=== PATIENT | male | born 1975 | race Caucasian/White ===

== ENCOUNTER 2024-05-10 07:10 | Inpatient (IN) | payer OTHER, SELFPAY ==
[2024-05-10] VITALS (18 sets, daily range): BP systolic 125–164; BP diastolic 75–116; PULSE 61–100; RESP 16–25; TEMP 35.6–37; O2SAT 95–100; BMI 29.4
--- NOTE | ~2024-05-10 | US_ITS ---
EXAMINATION: US venous doppler ON LICENSE OF [facility] DATE: 05/13/2024 13:35 INDICATION: Arm edema TECHNIQUE: Duran scale images with and without compression and Doppler images of the left upper extrem ity veins were obtained. COMPARISON: None. FINDINGS: The left internal jugular vein, subclavian vein, axillary vein, brachial veins, basilic vein, cephali c vein, radial vein, and ulnar vein are patent. IMPRESSION: 1. Patent left upper extremity veins. No evidence of deep venous thrombosis. Reviewed, dictated and finalized at location B.
--- NOTE | ~2024-05-10 | CT_ITS ---
EXAMINATION: CT abdomen pelvis w con DATE: 05/10/2024 09:02 INDICATION: Pancreatitis. TECHNIQUE: Computed tomography (CT) of the abdomen and pelvis was performed with 100 mL Omnipaque 350 intravenous contrast. Automated exposure control and iterative reconstruction technique were employe d. The dose-length product was 601.60 mGy-cm. COMPARISON: None. FINDINGS: The visualized portions of the lung bases demonstrate mild atelectasis. No pleural effusion . The heart size is normal. No pericardial effusion. The liver is normal. There are changes of cholec ystectomy. There is fat stranding and fluid around the head of the pancreas with hypoenhancement in t he head of the pancreas, consistent with acute interstitial pancreatitis. The spleen, adrenal glands, and right kidney are normal. There is a 3 mm cyst in left kidney. There are no dilated loops of salvador l. The appendix is normal. There are no pathologically enlarged lymph nodes. There is mild thoracic s pondylosis. IMPRESSION: 1. Acute interstitial pancreatitis. Reviewed, dictated and finalized at location A.
[2024-05-10 07:49] LABS: Basophils Absolute Auto 0.1 K/mm3 (0.0-0.1); Basophils Percent Auto 0.8 % (0.2-1.2); Eosinophils Absolute Auto 0.1 K/mm3 (0-0.3); Eosinophils Percent Auto 0.5 % (0-4.4); Hemoglobin 14.7 g/dL (14.0-18.0); Immature Granulocyte Absolute 0.09 K/mm3 (0.00-0.031); Immature Granulocyte Percent A 0.5 % (0-0.5); Lymphocytes Absolute Auto 1.22 K/mm3 (0.9-3.2); Mean Corpuscular HGB Conc 34.2 g/dl (32-36); Mean Corpuscular Hemoglobin 29.2 pg (26-34); Mean Corpuscular Volume 85.5 fl (80-100); Mean Platelet Volume 9.5 fl (7.4-10.4); Monocytes Absolute Auto 1.2 K/mm3 (0.1-0.6); Monocytes Percent Auto 6.7 % (2.6-8.5); Neutrophils Absolute Auto 14.7 K/mm3 (1.3-6.7); Neutrophils Percent Auto 84.5 % (45.5-73.1); Platelet Count Result 332 k/mm3 (150-375); Red Blood Count 5.03 M/mm3 (4.6-6.20); Red Cell Distribution Width 12.2 % (11.5-14.5); White Blood Count 17.4 K/mm3 (4.5-10.0)
[2024-05-10 07:50] LABS: Add Urine Microscopic? NO; Appearance Urine Clear (Clear); Bilirubin Urine Negative (Negative); Blood Urine Negative (Negative); Color Urine Yellow (Yellow); Glucose Urine UA Negative (Negative); Ketones Urine Trace mg/dL (Negative); Leukocyte Esterase Ur Negative LEU/UL (Negative); Nitrate Urine Negative (Negative); Protein Urine Negative (Negative); Specific Grav Ur 1.017 (1.001-1.035); pH Urine 7.5 (5.0-9.0)
[2024-05-10 08:00] LABS: Alanine Aminotransferase 41 U/L (6-50); Albumin Level 4.6 g/dL (3.5-5.1); Alkaline Phosphatase 80 U/L (38-126); Anion Gap 10 mmol/L (4-12); Aspartate Amino Transferase 34 U/L (17-59); Bilirubin,Total 0.3 mg/dL (0.2-1.3); Blood Urea Nitrogen 13 mg/dL (9-20); Calcium 9.1 mg/dL (8.4-10.2); Carbon Dioxide 28 mmol/L (22-30); Chloride 100 mmol/L (98-107); Estimated CRCL calculation 75 ml/min; Estimated Glomerular Filt Rate > 60; Glucose 130 mg/dL (65-110); Potassium 4.4 mmol/L (3.4-5.0); Sodium 138 mmol/L (137-145)
[2024-05-10 08:13] LABS: Lipase 2434 U/L (23-300)
[2024-05-10] MEDS: ONDANSETRON INJ 4 MG/2 ML VIAL IV PUSH ×4 (08:47→20:27)
[2024-05-10] MEDS: SODIUM CHLORIDE 0.9% IV 1,000 ML 999 ML IV CONT ×2 (08:47→09:06)
[2024-05-10] MEDS: HYDROmorphone HCL INJ (*CRX) 1 MG/ML SYR IV PUSH ×3 (08:48→12:34)
--- NOTE | 2024-05-10 08:51 | ED.ABDPAIN ---
HPI - Abdominal Pain General Chief Complaint: Abdominal Pain Stated Complaint: abd pain Time Seen by Provider: 05/10/24 08:13 History of Present Illness HPI narrative: Patient is a 49-year-old male presenting with abdominal pain and vomiting. States that it feels like an episode of pancreatitis that he had about 10 years ago. States that it just started this morning. States in the middle of his stomach and a goes straight through to his back. Has been vomiting all morning as well. Denies fevers, chest pain, shortness of breath, cough, diarrhea, dysuria. States that they were unsure why he developed pancreatitis last time. States that he has approximately 3 alcoholic beverages per month. Related Data Home Medications Medication Instructions Recorded Confirmed No Home Medications 05/10/24 05/10/24 Allergies Allergy/AdvReac Type Severity Reaction Status Date / Time No Known Allergies Allergy Verified 05/10/24 11:08 Review of Systems Review of Systems: All systems reviewed & are unremarkable except as noted in HPI and below PMFSH Past Medical History Medical History (Updated 05/12/24 @ 15:59 by Cassidy Acharya APRN) Abdominal pain GERD (gastroesophageal reflux disease) Loose stools Nausea & vomiting Pancreatitis Surgical History Surgical History History of testicular surgery Hx of cholecystectomy Family History Family History Mother Ovarian cancer Father Diabetes mellitus Sibling Diabetes mellitus Grandparent Cancer Other Cancer Grandparent Alzheimer dementia Grandparent Alzheimer dementia Social History Social History Smoking packs per day: 2 Smoking cigarettes per day: 40.0 Years smoked: 20 Smoking pack-years: 40.00 Smoking status: Former smoker Tobacco type: cigarettes Alcohol intake: current Drinks per week: 1 Substance use: never Do You Feel Safe in your Home?: Yes Lack of Transportation: No Lack of Food: Never True Current Housing: I Have Housing Concerned About Future Housing: No Difficulty Paying Gas/Electric Bills: No Difficulty Paying for Meds: No Currently Unemployed: No Education: High School Diploma/GED Difficulty w/ Childcare or Family Care: No Spiritual care concerns: No Exam Narrative: GENERAL: Distress secondary to vomiting and pain HEAD: Normocephalic, atraumatic. EYES: PERRLA and EOMI. ENT: Mucous membranes moist. NECK: Supple. CHEST: Clear to auscultation. No respiratory distress. HEART: Regular rate and rhythm ABDOMEN: Soft, + tender in epigastrium and left upper quadrant without guarding or rebound EXTREMITIES: Normal range of motion. SKIN: Warm, dry, no rash. NEURO: No focal deficits. Alert and oriented x3. PSYCH: Normal mood and affect. Course Vital Signs Vital signs: Vital Signs Pulse Rate 62 05/10/24 07:20 Respiratory Rate 25 H 05/10/24 07:20 Pulse Oximetry 99 05/10/24 07:20 Temperature 98.0 F 05/12/24 04:20 Pulse Rate 98 05/12/24 09:20 Respiratory Rate 18 05/12/24 09:20 Blood Pressure 119/70 05/12/24 04:20 Pulse Oximetry 94 05/12/24 09:20 Oxygen Delivery Room Air 05/12/24 09:20 MDM - Abdominal Pain MDM Narrative Medical decision making narrative: 49-year-old male presenting with abdominal pain and vomiting. Vitals are stable. Exam remarkable for the above. Blood work with leukocytosis with white count of 17.4. Lipase is 2400. CT abdomen pelvis confirms acute interstitial pancreatitis. Patient reports improvement in his nausea following the Zofran and states that his pain was temporarily help with the Dilaudid but it is now coming back. Patient requires admission, he is agreeable with this plan. Spoke with the hospitalist was accepted him for admission. He requests GI consult which w
--- NOTE | 2024-05-10 11:10 | ADMGEN ---
This patient, Manuelito Lester, was admitted to Medical Room 347-. Patient/family oriented to hospital policies and general routines including ID bracelet, bed and alarms, visiting hours, pain management, procedures, bathroom and other care routines, personal items, smoking policy, room service/diet, and visiting hours. Information on how to activate the Rapid Response Team has been discussed. Patient/Family are encouraged to report perceived risks to care and to ask questions if they do not understand what they are told or what they should do.
--- NOTE | 2024-05-10 12:28 | PM.IMHP ---
H&P: HPI History of Present Illness Date/Time: 05/10/24 12:28 Chief Complaint: Abdominal Pain Narrative: 49 y/o M presents here with abdominal pain with PMH of pancreatitis and GERD. The patient presents here from home for further evaluation of right sided abdominal pain, nausea, and vomiting. Patient reports onset of right upper quadrant abdominal pain starting at 04:00 a.m. this morning. He describes the pain as sharp/twisting, radiating into his upper back, constant but severity varies, aggravated by movement, and alleviated by emesis. Accompanied by nausea and vomiting. Patient reports that he has chronic diarrhea since his GB was removed. Denies associated fever, chills, body aches, no change in stool color, chest pain, or shortness of breath. Last episode of pancreatitis was approximately 10 years ago and believed to be idiopathic. He reports scant alcohol use, approximately 3 beverages per month. Denies any current use of medications for weight loss, OTC/supplements, or daily medications. Initial VS at presentation: 98.1? F, HR 62, RR 25, 164/116, and 99% on RA. ED workup showed: WBC 17.4, no anemia, no significant electrolyte derangements, creatinine 1.0 and GFR >60, lipase 2434. CT showed acute interstitial pancreatitis. Review of Systems Review of Systems: All systems reviewed & are unremarkable except as noted in HPI and below PMFSH Past Medical History Medical History (Updated 05/10/24 @ 14:15 by CECIL DwyerN-C) GERD (gastroesophageal reflux disease) Loose stools Pancreatitis Surgical History Surgical History History of testicular surgery Hx of cholecystectomy Family History Family History Mother Ovarian cancer Father Diabetes mellitus Sibling Diabetes mellitus Grandparent Cancer Other Cancer Grandparent Alzheimer dementia Grandparent Alzheimer dementia Social History Social History Smoking packs per day: 2 Smoking cigarettes per day: 40.0 Years smoked: 20 Smoking pack-years: 40.00 Smoking status: Former smoker Tobacco type: cigarettes Alcohol intake: current Drinks per week: 1 Substance use: never Do You Feel Safe in your Home?: Yes Lack of Transportation: No Lack of Food: Never True Current Housing: I Have Housing Concerned About Future Housing: No Difficulty Paying Gas/Electric Bills: No Difficulty Paying for Meds: No Currently Unemployed: No Education: High School Diploma/GED Difficulty w/ Childcare or Family Care: No Spiritual care concerns: No Meds Home Medications and Allergies Home Medications Medication Instructions Recorded Confirmed Type No Home Medications 05/10/24 05/10/24 History Allergies Allergy/AdvReac Type Severity Reaction Status Date / Time No Known Allergies Allergy Verified 05/10/24 11:08 Vital Signs Vital Signs - 24 hr 05/10/24 07:29 05/10/24 08:49 05/10/24 09:06 Temperature 98.1 F Pulse Rate 61 70 82 Respiratory Rate 19 18 18 Blood Pressure 161/97 H 131/75 149/100 H Pulse Oximetry 97 99 97 Oxygen Delivery 05/10/24 07:20 05/10/24 07:28 05/10/24 07:30 Temperature Pulse Rate 62 Respiratory Rate 25 H 18 23 H Blood Pressure 164/116 H Pulse Oximetry 99 98 97 Oxygen Delivery 05/10/24 07:31 05/10/24 09:16 05/10/24 09:30 Temperature Pulse Rate Respiratory Rate 17 Blood Pressure 161/97 H Pulse Oximetry 96 96 97 Oxygen Delivery 05/10/24 09:31 05/10/24 09:54 05/10/24 10:00 Temperature Pulse Rate Respiratory Rate Blood Pressure 149/105 H 155/105 H Pulse Oximetry 97 98 95 Oxygen Delivery 05/10/24 10:01 05/10/24 10:15 05/10/24 10:16 Temperature Pulse Rate Respiratory Rate Blood Pressure 156/100 H Pulse Oximetry 97 97 97 Oxygen Delivery
[2024-05-10] MEDS: LACTATED RINGERS 1,000 ML 75 ML IV CONT (12:37)
--- NOTE | 2024-05-10 13:15 | WPDGICN ---
Assessment and Plan Assessment and plan (1) Acute pancreatitis: Qualifiers: Acute pancreatitis complication: uninfected necrosis Pancreatitis type: idiopathic Qualified Code(s): K85.01 - Idiopathic acute pancreatitis with uninfected necrosis Code(s): K85.90 - Acute pancreatitis without necrosis or infection, unspecified Status: Acute Assessment and Plan: Acute pancreatitis confirmed by CT scan. Lipase 2434 and WBC 17.4. etiology unknown. - per pt, previous pancreatitis due to gallbladder issues, maybe stones (?), no evidence or retained stones and Tbili and LFTs WNLs - Lipid panel order for AM to assess triglycerides - rarely drinks alcohol. - continue supportive measures - trending lipase - he had no bowel movements today but is passing gas, could due to NPO status. No abdominal distention on exam and audible bowel sounds noted, nothing to suggest ileus. will monitor for now. (2) Leukocytosis: Code(s): D72.829 - Elevated white blood cell count, unspecified Status: Acute (3) Loose stools: Code(s): R19.5 - Other fecal abnormalities Status: Acute Assessment and Plan: - Chronic since cholecystectomy in 2006. - likely bile acid diarrhea. Plan Diet: NPO GI Prophylaxis: Not currently indicated DVT Prophylaxis: SCDs Lines: Peripheral Code Status: Full code GI Consult Note Consult date/time: 05/10/24 13:15 Reason for consult: acute pancreatitis HPI: Manuelito Lester is a 49 year old male with a past medical surgical history of GERD, testicular surgery, and cholecystectomy. He presented to [facility] this AM for sudden onset of right upper quadrant pain that radiated to his back with associated nausea and vomiting after taking a drink of water this AM. CT scan of abdomen and pelvis revealed Acute interstitial pancreatitis. lipase 2434, WBC 17.4. LFts normal. He reports a distant history of pancreatitis approximately 10 years ago, believed to be caused by his gallbladder. Over the past 10 years he does report approximately 3 episodes of epigastric discomfort that he believe could be from his pancreas. He would drink clear liquids until symptoms resolved, otherwise he has been doing really well. Prior to this episode, he had been feeling fine with no issues. He rarely drinks alcohol, when he does drink it is only 2-3 beers. he denies any family history of pancreatitis. Since his teenager years he smoked 2 packs of cigarettes per day but quit smoking last year. He was prescribed an acid reducing medication last month per PCP (does not recall name) that he takes as needed with good symptom control otherwise he denies any other medications. Since his gallbladder surgery in , he had loose stools, approximately 3 a day. He had no bowel movements today but is passing gas. ENDOSCOPY HISTORY: EGD: No recent EGD available COLONOSCOPY: No recent colonoscopy available LABS AND STOOL STUDIES: WBC 17.4, HGB 14.7, HCT 43, PLATELETS 338, INR not available Total bilirubin 0.3, AST 34, ALT 41, Alkaline Phosphatase 80 Albumin 4.6, Lipase 2434, BUN 13, Creatinine 0.1 IMAGING: CT abdomen pelvis w con (05/10/2024): Fat stranding and fluid around the head of the pancreas with hypoenhancement in the head of the pancreas, consistent with acute interstitial pancreatitis. Changes of cholecystectomy noted. 3 mm cyst in left kidney. Mild thoracic spondylosis. Review of Systems Review of Systems: All systems reviewed & are unremarkable except as noted in HPI and below Constitutional: Constitutional: Reports no additional constitutional complaints Eyes: Eyes: Denies blurry vision ENT: Denies dysphagia Cardiovascular: Cardiovascular: Denies leg edema Gastrointestinal: Gastrointestinal: Reports as per HPI Musculoskeletal: Musculoskeletal: Reports joint swelling (left ring finger) Integumentary/Breasts: Skin/Breast: Denies rash Neurologic: Denies Abnormal s
[2024-05-10] MEDS: HYDROcodone/acetaminophen (*CRX) 5-325 MG TABLET 1 TAB PO ×2 (14:20→20:31)
[2024-05-10] MEDS: PROCHLORPERAZINE EDISYLATE 10 MG/2 ML VIAL IV PUSH (15:31)
[2024-05-11] MEDS: LACTATED RINGERS 1,000 ML 75 ML IV CONT ×2 (01:39→14:35)
[2024-05-11] MEDS: HYDROcodone/acetaminophen (*CRX) 5-325 MG TABLET 1 TAB PO ×2 (05:57→10:19)
[2024-05-11] MEDS: ONDANSETRON INJ 4 MG/2 ML VIAL IV PUSH ×3 (05:57→20:17)
[2024-05-11 06:00] VITALS: BP 124/63; PULSE 94; RESP 18; TEMP 36.8; O2SAT 96
[2024-05-11 06:05] LABS: Hematocrit 42.3 % (42.0-52.0); Hemoglobin 14.1 g/dL (14.0-18.0); Mean Corpuscular HGB Conc 33.3 g/dl (32-36); Mean Corpuscular Hemoglobin 28.5 pg (26-34); Mean Corpuscular Volume 85.6 fl (80-100); Mean Platelet Volume 9.7 fl (7.4-10.4); Platelet Count Result 304 k/mm3 (150-375); Red Blood Count 4.94 M/mm3 (4.6-6.20); Red Cell Distribution Width 12.4 % (11.5-14.5)
[2024-05-11 06:06] LABS: Basophils Percent Auto 0.2 % (0.2-1.2); Immature Granulocyte Absolute 0.15 K/mm3 (0.00-0.031); Immature Granulocyte Percent A 0.8 % (0-0.5); Lymphocytes Absolute Auto 0.72 K/mm3 (0.9-3.2); Lymphocytes Percent Auto 3.8 % (18.3-44.2); Monocytes Absolute Auto 1.3 K/mm3 (0.1-0.6); Monocytes Percent Auto 7.1 % (2.6-8.5); Neutrophils Absolute Auto 16.7 K/mm3 (1.3-6.7); Neutrophils Percent Auto 88.1 % (45.5-73.1)
[2024-05-11 06:20] LABS: Alanine Aminotransferase 29 U/L (6-50); Alkaline Phosphatase 62 U/L (38-126); Anion Gap 10 mmol/L (4-12); Aspartate Amino Transferase 27 U/L (17-59); Bilirubin,Total 0.8 mg/dL (0.2-1.3); Blood Urea Nitrogen 16 mg/dL (9-20); Calcium 8.8 mg/dL (8.4-10.2); Carbon Dioxide 23 mmol/L (22-30); Chloride 100 mmol/L (98-107); Cholesterol 222 mg/dL (0-200); Estimated CRCL calculation 93 ml/min; Estimated Glomerular Filt Rate > 60; Glucose 141 mg/dL (65-110); HDL Direct 32 mg/dL; Potassium 3.9 mmol/L (3.4-5.0); Sodium 133 mmol/L (137-145); Triglycerides 285 mg/dL (<150)
[2024-05-11 06:27] LABS: Lipase 3600 U/L (23-300)
[2024-05-11 06:28] LABS: LDL Cholesterol Direct 128 mg/dL
--- NOTE | 2024-05-11 10:33 | WPDGIPROGNO ---
Progress Note: A&P Assessment and Plan (1) Acute pancreatitis: Qualifiers: Acute pancreatitis complication: uninfected necrosis Pancreatitis type: idiopathic Qualified Code(s): K85.01 - Idiopathic acute pancreatitis with uninfected necrosis Code(s): K85.90 - Acute pancreatitis without necrosis or infection, unspecified Status: Acute Assessment and Plan: liquid diet as tolerated supportive care, fluids, managing pain (2) Leukocytosis: Code(s): D72.829 - Elevated white blood cell count, unspecified Status: Acute Assessment and Plan: probably reactive from pancreatitis monitor (3) Nausea & vomiting: Code(s): R11.2 - Nausea with vomiting, unspecified Status: Acute Assessment and Plan: this has improved (4) Abdominal pain: Code(s): R10.9 - Unspecified abdominal pain Status: Acute (5) GERD (gastroesophageal reflux disease): Code(s): K21.9 - Gastro-esophageal reflux disease without esophagitis Status: Acute Subjective Date/time seen: 05/11/24 10:33 Interval history: still some discomfort, no nausea slightly better Review of Systems Review of Systems: All systems reviewed & are unremarkable except as noted in HPI and below Exam Const: General: comfortable and no acute distress HENMT: Face/Nose/Sinus: Normal nares present Eyes: General: appearance normal, both eyes and all related structures Neck: Neck: supple Resp: Effort & Inspection: normal respiratory effort Cardio: Rate: regular rate Rhythm: regular rhythm GI: Inspection: non-distended GI Palp: Yes Soft to palpation and Yes Tenderness to palpation present (GI) (ttp in mid abdomen, no rebound) Auscultation: normal bowel sounds Skin: General skin exam: normal color Neuro: Speech: normal speech Motor exam (neuro): 5/5 motor strength present throughout Extrem: General: normal to inspection and no pedal edema Psych: Mental Status: mental status grossly normal Objective Data Vital Signs Vital Signs: Vital Signs - 24 hr 05/10/24 11:12 05/10/24 11:30 05/10/24 14:00 Temperature 96.0 F L 96.6 F L Pulse Rate 64 77 Respiratory Rate 18 16 Blood Pressure 157/93 H 153/104 H Pulse Oximetry 97 99 Oxygen Delivery Room Air 05/10/24 20:00 05/10/24 21:28 05/11/24 06:00 Temperature 98.6 F 98.2 F Pulse Rate 100 94 Respiratory Rate 20 18 Blood Pressure 125/75 124/63 Pulse Oximetry 100 96 Oxygen Delivery Room Air Intake/Output Intake/Output: Intake & Output 05/08/24 05/09/24 05/10/24 05/11/24 23:59 23:59 23:59 23:59 Intake Total 1999 977.5 Balance 1999 977.5 Meds/Results Medications: Active Medications Generic Name Dose Route Start Last Admin Trade Name Cornelioq PRN Reason Stop Dose Admin Acetaminophen 650 mg 05/10/24 12:17 Acetaminophen 325 Mg Tablet PO Q4H PRN Mild Pain (1-3) or Fever Hydrocodone Bitart/Acetaminophen 1 tab 05/10/24 12:17 05/11/24 10:19 Hydrocodone/Acetaminophen (*Crx) 5-325 Mg Tablet PO 1 tab Q4H PRN Administration Pain Rated 4-6 Diphenhydramine HCl 25 mg 05/10/24 15:16 Diphenhydramine Hcl Inj 50 Mg/Ml Vial IV PUSH Q4H PRN Nausea And Vomiting Hydromorphone HCl 1 mg 05/10/24 12:17 05/10/24 12:34 Hydromorphone Hcl Inj (*Crx) 1 Mg/Ml Syr IV PUSH 1 mg Q3H PRN Administration Pain Rated 7-10 Lactated Ringer's 1,000 mls @ 75 mls/hr 05/10/24 12:20 05/11/24 01:39 Lr - Lactated Ringers Iv IV CONT 75 mls/hr .[id number] LIANNA Administration Ondansetron HCl 4 mg 05/10/24 10:06 05/11/24 10:19 Ondansetron Inj 4 Mg/2 Ml Vial IV PUSH 4 mg Q4H PRN Administration Nausea Prochlorperazine Edisylate 10 mg 05/10/24 15:15 05/10/24 15:31 Prochlorperazine Edisylate 10 Mg/2 Ml Vial IV PUSH 10 mg Q6H PRN Administration Nausea And Vomiting Radiology Results: ITS Impressions Abdomen/Pelvis CT 05/10/24 09:16 IMP
--- NOTE | 2024-05-11 11:12 | PM.IMPN ---
Progress Note: A&P Assessment and Plan (1) Acute pancreatitis: Qualifiers: Acute pancreatitis complication: uninfected necrosis Pancreatitis type: idiopathic Qualified Code(s): K85.01 - Idiopathic acute pancreatitis with uninfected necrosis Code(s): K85.90 - Acute pancreatitis without necrosis or infection, unspecified Status: Acute Assessment and Plan: 05/11/24: CT of the abdomen pelvis showing acute interstitial pancreatitis Continue IV fluids at 75 ml per hour White blood cell count increased to 19.0, hemoglobin A1c 6.0, blood sugars ranging 130-141, triglycerides 285, cholesterol 222, lipase up to 3600. Continue pain and nausea control Will start clear liquid diet today Will start atorvastatin Will also start gemfibrozil for the high triglycerides (2) Hypertriglyceridemia: Code(s): E78.1 - Pure hyperglyceridemia Status: Acute Assessment and Plan: see above Time Spent With Patient Time with patient: Greater than 35 minutes Subjective Date/time seen: 05/11/24 11:12 Interval history: Interval history: This is a 49-year-old male who presented to the hospital on 05/10/2024 with abdominal pain. Workup in the hospital included an abdomen pelvis CT which showed acute interstitial pancreatitis. Initial labs showed a white blood cell count of 17.4, blood glucose 130, lipase 2434. UA was obtained and showed trace ketones. Patient was given pain meds and nausea meds while in the ED. He was started on LR at 75 mL/hr. Subjective: 05/11/24: Patient denies any fever, chills, nausea, vomiting, diarrhea, shortness of breath, chest pain. Patient endorses abdominal pain especially after eating or drinking something sweet. He states he did not tolerate clear liquids today and had to have pain medication after his tray. He also reports mild headache today. Labs and imaging reviewed. Review of Systems Review of Systems: All systems reviewed & are unremarkable except as noted in HPI and below Constitutional: Constitutional: Reports as per HPI and Reports no additional constitutional complaints Eyes: Eyes: Reports as per HPI and Reports no additional eye complaints ENT: Reports system reviewed and no additional complaints, except as documented and Reports as per HPI Cardiovascular: Cardiovascular: Reports as per HPI and Reports no additional cardiovascular complaints Respiratory: Respiratory: Reports as per HPI and Reports no additional respiratory complaints Gastrointestinal: Gastrointestinal: Reports as per HPI and Reports no additional gastrointestinal complaints Genitourinary: Genitourinary: Reports no additional male genitourinary complaints and Reports as per HPI Musculoskeletal: Musculoskeletal: Reports no additional musculoskeletal complaints and Reports as per HPI Integumentary/Breasts: Skin/Breast: Reports system reviewed and no additional complaints, except as docu and Reports as per HPI Neurologic: Reports system reviewed and no additional complaints, except as documented and Reports as per HPI Psychiatric: Psychiatric: Reports no additional psychiatric complaints and Reports as per HPI Exam Narrative: General: In no acute distress, well nourished Head: atraumatic, no encephalopathy Eyes: EOMI, PERRLA, sclera clear ENT: moist mucous membranes, nasal passages clear Neck: supple, no JVD, no adenopathy, trachea midline Cardiac: Normal S1 and S2. No murmur, gallops or friction rubs, peripheral pulses intact. Respiratory: Lungs clear to auscultation, no adventitious lung sounds Gastrointestinal: soft, non-distended, tenderness upper quadrants, normoactive bowel sounds. : voiding without difficulty. Extremities: moves all extremities well, no edema, good ROM, strength 5/5 Skin: clean, dry, intact. No wounds or lesions. Neuro: Alert and oriented x4, cranial nerves intact, no neuro deficits. Psych: normal mood, normal affect, interactive Objective Data Vital
[2024-05-11] MEDS: HYDROmorphone HCL INJ (*CRX) 1 MG/ML SYR IV PUSH (13:35)
[2024-05-11] MEDS: PROCHLORPERAZINE EDISYLATE 10 MG/2 ML VIAL IV PUSH (13:35)
[2024-05-11 14:52] VITALS: BP 135/82; PULSE 99; RESP 19; TEMP 36.8; O2SAT 93
[2024-05-11] MEDS: gemfibroziL 600 MG TABLET PO (15:49)
[2024-05-11 20:00] VITALS: BP 129/76; PULSE 100; RESP 18; TEMP 38.6; O2SAT 90
[2024-05-11 20:17] VITALS: TEMP 38.4
[2024-05-11] MEDS: ACETAMINOPHEN 325 MG TABLET 650 MG PO (20:17)
[2024-05-11 21:17] VITALS: TEMP 37.3
[2024-05-12] MEDS: HYDROcodone/acetaminophen (*CRX) 5-325 MG TABLET 1 TAB PO ×3 (03:41→19:01)
[2024-05-12] MEDS: LACTATED RINGERS 1,000 ML 75 ML IV CONT (03:41)
[2024-05-12 04:20] VITALS: BP 119/70; PULSE 100; RESP 18; TEMP 36.7; O2SAT 93
[2024-05-12 05:58] LABS: Basophils Absolute Auto 0.1 K/mm3 (0.0-0.1); Basophils Percent Auto 0.3 % (0.2-1.2); Eosinophils Percent Auto 0.2 % (0-4.4); Hemoglobin 12.6 g/dL (14.0-18.0); Immature Granulocyte Absolute 0.11 K/mm3 (0.00-0.031); Immature Granulocyte Percent A 0.5 % (0-0.5); Lymphocytes Absolute Auto 1.04 K/mm3 (0.9-3.2); Lymphocytes Percent Auto 5.2 % (18.3-44.2); Mean Corpuscular HGB Conc 33.2 g/dl (32-36); Mean Corpuscular Hemoglobin 28.6 pg (26-34); Mean Corpuscular Volume 86.2 fl (80-100); Mean Platelet Volume 9.5 fl (7.4-10.4); Monocytes Absolute Auto 1.6 K/mm3 (0.1-0.6); Monocytes Percent Auto 8.1 % (2.6-8.5); Neutrophils Absolute Auto 17.2 K/mm3 (1.3-6.7); Neutrophils Percent Auto 85.7 % (45.5-73.1); Platelet Count Result 272 k/mm3 (150-375); Red Blood Count 4.41 M/mm3 (4.6-6.20); Red Cell Distribution Width 12.3 % (11.5-14.5)
[2024-05-12 06:13] LABS: Alanine Aminotransferase 23 U/L (6-50); Albumin Level 3.8 g/dL (3.5-5.1); Alkaline Phosphatase 56 U/L (38-126); Anion Gap 9 mmol/L (4-12); Aspartate Amino Transferase 26 U/L (17-59); Bilirubin,Total 1.1 mg/dL (0.2-1.3); Blood Urea Nitrogen 14 mg/dL (9-20); Calcium 8.5 mg/dL (8.4-10.2); Carbon Dioxide 26 mmol/L (22-30); Chloride 97 mmol/L (98-107); Estimated CRCL calculation 93 ml/min; Estimated Glomerular Filt Rate > 60; Glucose 122 mg/dL (65-110); Lipase 578 U/L (23-300); Potassium 3.9 mmol/L (3.4-5.0); Sodium 132 mmol/L (137-145); Triglycerides 185 mg/dL (<150)
[2024-05-12] MEDS: gemfibroziL 600 MG TABLET PO ×2 (06:46→16:14)
[2024-05-12] MEDS: ATORVASTATIN 20 MG TABLET PO (09:17)
[2024-05-12 09:20] VITALS: PULSE 98; RESP 18; O2SAT 94
[2024-05-12] MEDS: ONDANSETRON INJ 4 MG/2 ML VIAL IV PUSH (10:11)
[2024-05-12] MEDS: PROCHLORPERAZINE EDISYLATE 10 MG/2 ML VIAL IV PUSH (13:42)
[2024-05-12 14:00] VITALS: BP 134/87; PULSE 98; RESP 18; TEMP 36.6; O2SAT 94
--- NOTE | 2024-05-12 14:23 | WPDGIPROGNO ---
Progress Note: A&P Assessment and Plan (1) Acute pancreatitis: Qualifiers: Acute pancreatitis complication: uninfected necrosis Pancreatitis type: idiopathic Qualified Code(s): K85.01 - Idiopathic acute pancreatitis with uninfected necrosis Code(s): K85.90 - Acute pancreatitis without necrosis or infection, unspecified Status: Acute Assessment and Plan: liquid diet as tolerated supportive care, fluids, managing pain still with nausea but less pain (2) Leukocytosis: Code(s): D72.829 - Elevated white blood cell count, unspecified Status: Acute Assessment and Plan: probably reactive from pancreatitis monitor (3) Nausea & vomiting: Code(s): R11.2 - Nausea with vomiting, unspecified Status: Acute (4) Abdominal pain: Code(s): R10.9 - Unspecified abdominal pain Status: Acute Assessment and Plan: improved (5) GERD (gastroesophageal reflux disease): Code(s): K21.9 - Gastro-esophageal reflux disease without esophagitis Status: Acute Subjective Date/time seen: 05/12/24 14:23 Interval history: less pain but still with nausea after liquid diet Review of Systems Review of Systems: All systems reviewed & are unremarkable except as noted in HPI and below Exam Const: General: comfortable and no acute distress HENMT: Face/Nose/Sinus: Normal nares present Eyes: General: appearance normal, both eyes and all related structures Neck: Neck: supple Resp: Effort & Inspection: normal respiratory effort Cardio: Rate: regular rate Rhythm: regular rhythm GI: GI Palp: Yes Soft to palpation and Yes Tenderness to palpation present (GI) (ttp in mid abdomen, no rebound) Auscultation: normal bowel sounds Skin: General skin exam: normal color Neuro: Speech: normal speech Motor exam (neuro): 5/5 motor strength present throughout Extrem: General: normal to inspection and no pedal edema Psych: Mental Status: mental status grossly normal Objective Data Vital Signs Vital Signs: Vital Signs - 24 hr 05/11/24 14:52 05/11/24 20:17 05/11/24 20:00 Temperature 98.3 F 101.1 F H 101.4 F H Pulse Rate 99 100 Respiratory Rate 19 18 Blood Pressure 135/82 129/76 Pulse Oximetry 93 90 Oxygen Delivery 05/11/24 20:00 05/11/24 21:17 05/11/24 20:00 Temperature 101.4 F H 99.2 F Pulse Rate 100 Respiratory Rate 18 Blood Pressure 129/76 Pulse Oximetry 90 Oxygen Delivery Room Air 05/12/24 04:20 Temperature 98.0 F Pulse Rate 100 Respiratory Rate 18 Blood Pressure 119/70 Pulse Oximetry 93 Oxygen Delivery Intake/Output Intake/Output: Intake & Output 05/09/24 05/10/24 05/11/24 05/12/24 23:59 23:59 23:59 23:59 Intake Total 1999 2557.5 945 Balance 1999 2557.5 945 Meds/Results Medications: Active Medications Generic Name Dose Route Start Last Admin Trade Name Freq PRN Reason Stop Dose Admin Acetaminophen 650 mg 05/10/24 12:17 05/11/24 20:17 Acetaminophen 325 Mg Tablet PO 650 mg Q4H PRN Administration Mild Pain (1-3) or Fever Hydrocodone Bitart/Acetaminophen 1 tab 05/10/24 12:17 05/12/24 09:22 Hydrocodone/Acetaminophen (*Crx) 5-325 Mg Tablet PO 1 tab Q4H PRN Administration Pain Rated 4-6 Atorvastatin Calcium 20 mg 05/12/24 09:00 05/12/24 09:17 Atorvastatin 20 Mg Tablet PO 20 mg DAILY LIANNA Administration Diphenhydramine HCl 25 mg 05/10/24 15:16 Diphenhydramine Hcl Inj 50 Mg/Ml Vial IV PUSH Q4H PRN Nausea And Vomiting Gemfibrozil 600 mg 05/11/24 16:30 05/12/24 06:46 Gemfibrozil 600 Mg Tablet PO 600 mg BIDAC LIANNA Administration Hydromorphone HCl 1 mg 05/10/24 12:17 05/11/24 13:35 Hydromorphone Hcl Inj (*Crx) 1 Mg/Ml Syr IV PUSH 1 mg Q3H PRN Administration Pain Rated 7-10 Lactated Ringer's 1,000 mls @ 75 mls/hr 05/10/24 12:20 05/12/24 03:41 Lr - Lactated Ringers Iv IV CONT 75 mls/hr .[id number] LIANNA Admi
--- NOTE | 2024-05-12 15:50 | PM.IMPN ---
Progress Note: A&P Assessment and Plan (1) Acute pancreatitis: Qualifiers: Acute pancreatitis complication: uninfected necrosis Pancreatitis type: idiopathic Qualified Code(s): K85.01 - Idiopathic acute pancreatitis with uninfected necrosis Code(s): K85.90 - Acute pancreatitis without necrosis or infection, unspecified Status: Acute Assessment and Plan: CT of the abdomen pelvis showing acute interstitial pancreatitis GI following, appreciate recommendations Continue IV fluids at 75 ml per hour White blood cell count increased to 19.0<20, hemoglobin A1c 6.0, blood sugars ranging 130-141, triglycerides 285, cholesterol 222, lipase up to 3600. Continue pain and nausea control. PPI for epigastric pain Still having symptoms with clear liquids, now NPO Will start atorvastatin Will also start gemfibrozil for the high triglycerides (2) Hypertriglyceridemia: Code(s): E78.1 - Pure hyperglyceridemia Status: Acute Assessment and Plan: see above (3) Anemia: Code(s): D64.9 - Anemia, unspecified Status: Acute Assessment and Plan: H&H Trending down with fluids, 14.7/43>12.6/38 Likely dilutional. No symptoms of blood loss. Has GERD and is having epigastric pain --Monitor stools --Follow CBC in AM --Start PPI BID Time Spent With Patient Time: 45 Subjective Date/time seen: 05/12/24 15:50 Interval history: Still having pain and nausea with liquid diet, now NPO. White count trending up. Lipase and triglycerides improved. Sodium trending down, changing LR to NS Exam Narrative: General: In no acute distress, well nourished Head: atraumatic, no encephalopathy Eyes: EOMI, PERRLA, sclera clear ENT: moist mucous membranes, nasal passages clear Neck: supple, no JVD, no adenopathy, trachea midline Cardiac: Normal S1 and S2. No murmur, gallops or friction rubs, peripheral pulses intact. Respiratory: Lungs clear to auscultation, no adventitious lung sounds Gastrointestinal: soft, non-distended, tenderness epigastric and upper quadrants, normoactive bowel sounds. : voiding without difficulty. Extremities: moves all extremities well, no edema, good ROM, strength 5/5 Skin: clean, dry, intact. No wounds or lesions. Neuro: Alert and oriented x4, cranial nerves intact, no neuro deficits. Psych: normal mood, normal affect, interactive Objective Data Vital Signs Vital Signs: Vital Signs - 24 hr 05/11/24 20:17 05/11/24 20:00 05/11/24 20:00 Temperature 101.1 F H 101.4 F H 101.4 F H Pulse Rate 100 100 Respiratory Rate 18 18 Blood Pressure 129/76 129/76 Pulse Oximetry 90 90 Oxygen Delivery 05/11/24 21:17 05/11/24 20:00 05/12/24 04:20 Temperature 99.2 F 98.0 F Pulse Rate 100 Respiratory Rate 18 Blood Pressure 119/70 Pulse Oximetry 93 Oxygen Delivery Room Air Intake/Output Intake/Output: Intake & Output 05/09/24 05/10/24 05/11/24 05/12/24 23:59 23:59 23:59 23:59 Intake Total 1999 2557.5 945 Balance 1999 2557.5 945 Meds/Results Medications: Active Medications Generic Name Dose Route Start Last Admin Trade Name Freq PRN Reason Stop Dose Admin Acetaminophen 650 mg 05/10/24 12:17 05/11/24 20:17 Acetaminophen 325 Mg Tablet PO 650 mg Q4H PRN Administration Mild Pain (1-3) or Fever Hydrocodone Bitart/Acetaminophen 1 tab 05/10/24 12:17 05/12/24 09:22 Hydrocodone/Acetaminophen (*Crx) 5-325 Mg Tablet PO 1 tab Q4H PRN Administration Pain Rated 4-6 Atorvastatin Calcium 20 mg 05/12/24 09:00 05/12/24 09:17 Atorvastatin 20 Mg Tablet PO 20 mg DAILY LIANNA Administration Diphenhydramine HCl 25 mg 05/10/24 15:16 Diphenhydramine Hcl Inj 50 Mg/Ml Vial IV PUSH Q4H PRN Nausea And Vomiting Gemfibrozil 600 mg 05/11/24 16:30 05/12/24 06:46 Gemfibrozil 600 Mg Tablet PO 600 mg BIDAC LIANNA Administration Hydromorphone HCl 1 mg 05/10/24 12:17 05/11/24 13:35 Hydrom
[2024-05-12] MEDS: SODIUM CHLORIDE 0.9% IV 1,000 ML 100 ML IV CONT (16:50)
[2024-05-12 20:57] VITALS: BP 129/88; PULSE 91; RESP 16; TEMP 37; O2SAT 93
[2024-05-12] MEDS: PANTOPRAZOLE SODIUM IV 40 MG VIAL IV PUSH (20:58)
[2024-05-13] MEDS: SODIUM CHLORIDE 0.9% IV 1,000 ML 100 ML IV CONT ×3 (01:43→20:13)
[2024-05-13 05:14] VITALS: BP 144/89; PULSE 94; RESP 18; TEMP 36.8; O2SAT 96
[2024-05-13] MEDS: HYDROcodone/acetaminophen (*CRX) 5-325 MG TABLET 1 TAB PO ×4 (05:23→20:13)
[2024-05-13] MEDS: gemfibroziL 600 MG TABLET PO ×2 (05:23→17:41)
[2024-05-13 07:02] LABS: Basophils Absolute Auto 0.1 K/mm3 (0.0-0.1); Basophils Percent Auto 0.3 % (0.2-1.2); Eosinophils Absolute Auto 0.1 K/mm3 (0-0.3); Eosinophils Percent Auto 0.3 % (0-4.4); Hematocrit 36.6 % (42.0-52.0); Hemoglobin 12.5 g/dL (14.0-18.0); Immature Granulocyte Absolute 0.19 K/mm3 (0.00-0.031); Lymphocytes Absolute Auto 0.92 K/mm3 (0.9-3.2); Lymphocytes Percent Auto 4.8 % (18.3-44.2); Mean Corpuscular HGB Conc 34.2 g/dl (32-36); Mean Corpuscular Hemoglobin 29.1 pg (26-34); Mean Corpuscular Volume 85.3 fl (80-100); Mean Platelet Volume 9.5 fl (7.4-10.4); Monocytes Absolute Auto 1.7 K/mm3 (0.1-0.6); Monocytes Percent Auto 8.9 % (2.6-8.5); Neutrophils Absolute Auto 16.1 K/mm3 (1.3-6.7); Neutrophils Percent Auto 84.7 % (45.5-73.1); Platelet Count Result 294 k/mm3 (150-375); Red Blood Count 4.29 M/mm3 (4.6-6.20); Red Cell Distribution Width 12.2 % (11.5-14.5)
[2024-05-13 07:29] LABS: Alanine Aminotransferase 22 U/L (6-50); Albumin Level 3.9 g/dL (3.5-5.1); Alkaline Phosphatase 99 U/L (38-126); Anion Gap 12 mmol/L (4-12); Aspartate Amino Transferase 30 U/L (17-59); Bilirubin,Total 1.2 mg/dL (0.2-1.3); Blood Urea Nitrogen 14 mg/dL (9-20); Calcium 8.6 mg/dL (8.4-10.2); Carbon Dioxide 22 mmol/L (22-30); Chloride 95 mmol/L (98-107); Estimated CRCL calculation 105 ml/min; Estimated Glomerular Filt Rate > 60; Glucose 116 mg/dL (65-110); Sodium 129 mmol/L (137-145)
[2024-05-13] MEDS: ATORVASTATIN 20 MG TABLET PO (08:17)
[2024-05-13] MEDS: PANTOPRAZOLE SODIUM IV 40 MG VIAL IV PUSH ×2 (08:17→20:13)
[2024-05-13] MEDS: ONDANSETRON INJ 4 MG/2 ML VIAL IV PUSH (08:17)
--- NOTE | 2024-05-13 10:43 | PM.IMPN ---
Progress Note: A&P Assessment and Plan (1) Acute pancreatitis: Qualifiers: Acute pancreatitis complication: uninfected necrosis Pancreatitis type: idiopathic Qualified Code(s): K85.01 - Idiopathic acute pancreatitis with uninfected necrosis Code(s): K85.90 - Acute pancreatitis without necrosis or infection, unspecified Status: Acute (2) Hypertriglyceridemia: Code(s): E78.1 - Pure hyperglyceridemia Status: Acute (3) Anemia: Code(s): D64.9 - Anemia, unspecified Status: Acute Plan 49-year-old male who presented to the hospital on 05/10/2024 with abdominal pain. Workup in the hospital included an abdomen pelvis CT which showed acute interstitial pancreatitis. Initial labs showed a white blood cell count of 17.4, blood glucose 130, lipase 2434. 1. acute pancreatitis: CT of the abdomen pelvis showing acute interstitial pancreatitis GI following, appreciate recommendations continue with IV fluids Pain control Liquid diet as tolerated Zofran p.r.n. started on Lopid and statin for hypertriglyceridemia monitor leukocytosis continue with PPI b.i.d. 2. mild hyponatremia: continue with IV fluids Recheck BMP in a.m. 3. left arm swelling: await DVT study 4. DVT prophylaxis: Heparin subQ 5. code status: Full 6. Disposition: Pending improvement Time Spent With Patient Time with patient: 15 - 25 minutes Subjective Date/time seen: 05/13/24 10:43 Interval history: continues to have Abdominal pain, tolerating minimal diet no fever Review of Systems Review of Systems: All systems reviewed & are unremarkable except as noted in HPI and below Exam Narrative: General: In no acute distress, well nourished Head: atraumatic, no encephalopathy Eyes: EOMI, PERRLA, sclera clear ENT: moist mucous membranes, nasal passages clear Neck: supple, no JVD, no adenopathy, trachea midline Cardiac: Normal S1 and S2. No murmur, gallops or friction rubs, peripheral pulses intact. Respiratory: Lungs clear to auscultation, no adventitious lung sounds Gastrointestinal: soft, non-distended, tenderness epigastric and upper quadrants, normoactive bowel sounds. : voiding without difficulty. Extremities: moves all extremities well, no edema, good ROM, strength 5/5 Skin: clean, dry, intact. No wounds or lesions. Neuro: Alert and oriented x4, cranial nerves intact, no neuro deficits. Psych: normal mood, normal affect, interactive Objective Data Vital Signs Vital Signs: Vital Signs - 24 hr 05/12/24 14:00 05/12/24 20:57 05/12/24 20:00 Temperature 97.8 F 98.6 F Pulse Rate 98 91 Respiratory Rate 18 16 Blood Pressure 134/87 129/88 Pulse Oximetry 94 93 Oxygen Delivery Room Air 05/13/24 05:14 Temperature 98.3 F Pulse Rate 94 Respiratory Rate 18 Blood Pressure 144/89 H Pulse Oximetry 96 Oxygen Delivery Intake/Output Intake/Output: Intake & Output 05/10/24 05/11/24 05/12/24 05/13/24 23:59 23:59 23:59 23:59 Intake Total 1999 2557.5 1445 1138.3 Balance 1999 2557.5 1445 1138.3 Meds/Results Medications: Active Medications Generic Name Dose Route Start Last Admin Trade Name Freq PRN Reason Stop Dose Admin Acetaminophen 650 mg 05/10/24 12:17 05/11/24 20:17 Acetaminophen 325 Mg Tablet PO 650 mg Q4H PRN Administration Mild Pain (1-3) or Fever Hydrocodone Bitart/Acetaminophen 1 tab 05/10/24 12:17 05/13/24 10:22 Hydrocodone/Acetaminophen (*Crx) 5-325 Mg Tablet PO 1 tab Q4H PRN Administration Pain Rated 4-6 Atorvastatin Calcium 20 mg 05/12/24 09:00 05/13/24 08:17 Atorvastatin 20 Mg Tablet PO 20 mg DAILY LIANNA Administration Diphenhydramine HCl 25 mg 05/10/24 15:16 Diphenhydramine Hcl Inj 50 Mg/Ml Vial IV PUSH Q4H PRN Nausea And Vomiting Gemfibrozil 600 mg 05/11/24 16:30 05/13/24 05:23 Gemfibrozil 600 Mg Tablet PO 600 mg BIDAC LIANNA Administration Hydromorphone HCl
[2024-05-13 11:09] VITALS: O2SAT 95
--- NOTE | 2024-05-13 13:52 | WPDGIPROGNO ---
Progress Note: A&P Assessment and Plan (1) Acute pancreatitis: Qualifiers: Acute pancreatitis complication: uninfected necrosis Pancreatitis type: idiopathic Qualified Code(s): K85.01 - Idiopathic acute pancreatitis with uninfected necrosis Code(s): K85.90 - Acute pancreatitis without necrosis or infection, unspecified Status: Acute Assessment and Plan: liquid diet as tolerated supportive care, fluids, managing pain less pain (2) Leukocytosis: Code(s): D72.829 - Elevated white blood cell count, unspecified Status: Acute Assessment and Plan: probably reactive from pancreatitis monitor (3) Nausea & vomiting: Code(s): R11.2 - Nausea with vomiting, unspecified Status: Acute (4) Abdominal pain: Code(s): R10.9 - Unspecified abdominal pain Status: Acute Assessment and Plan: improved (5) Hyponatremia: Code(s): E87.1 - Hypo-osmolality and hyponatremia Status: Acute Subjective Date/time seen: 05/13/24 13:52 Interval history: nausea better but still discomfort after eating Review of Systems Review of Systems: All systems reviewed & are unremarkable except as noted in HPI and below Exam Const: General: comfortable and no acute distress HENMT: Face/Nose/Sinus: Normal nares present Eyes: General: appearance normal, both eyes and all related structures Neck: Neck: supple Resp: Effort & Inspection: normal respiratory effort Cardio: Rate: regular rate Rhythm: regular rhythm GI: GI Palp: Yes Soft to palpation and Yes Tenderness to palpation present (GI) (ttp in mid abdomen, no rebound) Auscultation: normal bowel sounds Skin: General skin exam: normal color Neuro: Speech: normal speech Motor exam (neuro): 5/5 motor strength present throughout Extrem: General: normal to inspection and no pedal edema Psych: Mental Status: mental status grossly normal Objective Data Vital Signs Vital Signs: Vital Signs - 24 hr 05/12/24 14:00 05/12/24 20:57 05/12/24 20:00 Temperature 97.8 F 98.6 F Pulse Rate 98 91 Respiratory Rate 18 16 Blood Pressure 134/87 129/88 Pulse Oximetry 94 93 Oxygen Delivery Room Air 05/13/24 05:14 05/13/24 11:09 05/13/24 08:20 Temperature 98.3 F Pulse Rate 94 Respiratory Rate 18 Blood Pressure 144/89 H Pulse Oximetry 96 95 Oxygen Delivery Room Air Room Air Intake/Output Intake/Output: Intake & Output 05/10/24 05/11/24 05/12/24 05/13/24 23:59 23:59 23:59 23:59 Intake Total 1999 2557.5 1445 1258.3 Balance 1999 2557.5 1445 1258.3 Meds/Results Medications: Active Medications Generic Name Dose Route Start Last Admin Trade Name Freq PRN Reason Stop Dose Admin Acetaminophen 650 mg 05/10/24 12:17 05/11/24 20:17 Acetaminophen 325 Mg Tablet PO 650 mg Q4H PRN Administration Mild Pain (1-3) or Fever Hydrocodone Bitart/Acetaminophen 1 tab 05/10/24 12:17 05/13/24 10:22 Hydrocodone/Acetaminophen (*Crx) 5-325 Mg Tablet PO 1 tab Q4H PRN Administration Pain Rated 4-6 Atorvastatin Calcium 20 mg 05/12/24 09:00 05/13/24 08:17 Atorvastatin 20 Mg Tablet PO 20 mg DAILY LIANNA Administration Diphenhydramine HCl 25 mg 05/10/24 15:16 Diphenhydramine Hcl Inj 50 Mg/Ml Vial IV PUSH Q4H PRN Nausea And Vomiting Gemfibrozil 600 mg 05/11/24 16:30 05/13/24 05:23 Gemfibrozil 600 Mg Tablet PO 600 mg BIDAC LIANNA Administration Heparin Sodium (Porcine) 5,000 units 05/13/24 14:00 Heparin Sodium 5,000 Units/Ml Vial SUB-Q Q8HR LIANNA Hydromorphone HCl 1 mg 05/10/24 12:17 05/11/24 13:35 Hydromorphone Hcl Inj (*Crx) 1 Mg/Ml Syr IV PUSH 1 mg Q3H PRN Administration Pain Rated 7-10 Sodium Chloride 1,000 mls @ 100 mls/hr 05/12/24 16:00 05/13/24 01:43 Normal Saline Iv IV CONT 100 mls/hr .Q10H LIANNA Administration Ondansetron HCl 4 mg 05/10/24 10:06 05/13/24 08:17 Ondansetron Inj 4 Mg/
[2024-05-13 14:00] VITALS: BP 146/93; PULSE 86; RESP 24; TEMP 36.7; O2SAT 97
[2024-05-13] MEDS: PROCHLORPERAZINE EDISYLATE 10 MG/2 ML VIAL IV PUSH (14:41)
[2024-05-13] MEDS: HEPARIN SODIUM 5,000 UNITS/ML VIAL 5000 UNITS SUB-Q ×2 (14:42→20:13)
[2024-05-13 21:25] VITALS: BP 128/84; PULSE 99; RESP 18; TEMP 36.4; O2SAT 93
[2024-05-14 05:07] VITALS: BP 139/82; PULSE 86; RESP 16; TEMP 36.8; O2SAT 96
[2024-05-14] MEDS: HEPARIN SODIUM 5,000 UNITS/ML VIAL 5000 UNITS SUB-Q ×3 (05:42→20:35)
[2024-05-14] MEDS: gemfibroziL 600 MG TABLET PO ×2 (05:42→16:05)
[2024-05-14 06:52] LABS: Basophils Absolute Auto 0.1 K/mm3 (0.0-0.1); Basophils Percent Auto 0.4 % (0.2-1.2); Eosinophils Absolute Auto 0.1 K/mm3 (0-0.3); Eosinophils Percent Auto 0.4 % (0-4.4); Hematocrit 36.6 % (42.0-52.0); Hemoglobin 12.6 g/dL (14.0-18.0); Immature Granulocyte Percent A 1.1 % (0-0.5); Lymphocytes Absolute Auto 1.13 K/mm3 (0.9-3.2); Lymphocytes Percent Auto 6.3 % (18.3-44.2); Mean Corpuscular HGB Conc 34.4 g/dl (32-36); Mean Corpuscular Hemoglobin 29.5 pg (26-34); Mean Corpuscular Volume 85.7 fl (80-100); Mean Platelet Volume 9.3 fl (7.4-10.4); Monocytes Absolute Auto 1.8 K/mm3 (0.1-0.6); Monocytes Percent Auto 10.2 % (2.6-8.5); Neutrophils Absolute Auto 14.6 K/mm3 (1.3-6.7); Neutrophils Percent Auto 81.6 % (45.5-73.1); Platelet Count Result 344 k/mm3 (150-375); Red Blood Count 4.27 M/mm3 (4.6-6.20); Red Cell Distribution Width 12.1 % (11.5-14.5); White Blood Count 17.9 K/mm3 (4.5-10.0)
[2024-05-14 07:04] LABS: Alanine Aminotransferase 30 U/L (6-50); Albumin Level 3.8 g/dL (3.5-5.1); Alkaline Phosphatase 93 U/L (38-126); Anion Gap 13 mmol/L (4-12); Aspartate Amino Transferase 37 U/L (17-59); Bilirubin,Total 1.2 mg/dL (0.2-1.3); Blood Urea Nitrogen 14 mg/dL (9-20); Calcium 8.3 mg/dL (8.4-10.2); Carbon Dioxide 21 mmol/L (22-30); Chloride 95 mmol/L (98-107); Estimated CRCL calculation 105 ml/min; Estimated Glomerular Filt Rate > 60; Glucose 116 mg/dL (65-110); Potassium 3.8 mmol/L (3.4-5.0); Sodium 129 mmol/L (137-145)
[2024-05-14] MEDS: PANTOPRAZOLE SODIUM IV 40 MG VIAL IV PUSH ×2 (07:57→20:35)
[2024-05-14] MEDS: HYDROcodone/acetaminophen (*CRX) 5-325 MG TABLET 1 TAB PO ×4 (07:57→20:36)
[2024-05-14] MEDS: ONDANSETRON INJ 4 MG/2 ML VIAL IV PUSH (07:57)
[2024-05-14] MEDS: ATORVASTATIN 20 MG TABLET PO (07:57)
--- NOTE | 2024-05-14 08:56 | PM.IMPN ---
Subjective Date/time seen: 05/14/24 08:56 Interval history: Afebrile, VSS, RA, WBC improving 20>17, Na 129, CO2 low 21, AG 13 Overall feeling better, still having pain with meals but feels less pain with full liquids and using medications less frequently Objective Data Vital Signs Vital Signs: Vital Signs - 24 hr 05/13/24 11:09 05/13/24 14:00 05/13/24 21:25 Temperature 98.0 F 97.6 F Pulse Rate 86 99 Respiratory Rate 24 H 18 Blood Pressure 146/93 H 128/84 Pulse Oximetry 95 97 93 Oxygen Delivery Room Air 05/13/24 20:00 05/14/24 05:07 Temperature 98.3 F Pulse Rate 86 Respiratory Rate 16 Blood Pressure 139/82 Pulse Oximetry 96 Oxygen Delivery Room Air Intake/Output Intake/Output: Intake & Output 05/11/24 05/12/24 05/13/24 05/14/24 23:59 23:59 23:59 23:59 Intake Total 2557.5 1445 3930.0 350 Balance 2557.5 1445 3930.0 350 Meds/Results Medications: Active Medications Generic Name Dose Route Start Last Admin Trade Name Freq PRN Reason Stop Dose Admin Acetaminophen 650 mg 05/10/24 12:17 05/11/24 20:17 Acetaminophen 325 Mg Tablet PO 650 mg Q4H PRN Administration Mild Pain (1-3) or Fever Hydrocodone Bitart/Acetaminophen 1 tab 05/10/24 12:17 05/14/24 07:57 Hydrocodone/Acetaminophen (*Crx) 5-325 Mg Tablet PO 1 tab Q4H PRN Administration Pain Rated 4-6 Atorvastatin Calcium 20 mg 05/12/24 09:00 05/14/24 07:57 Atorvastatin 20 Mg Tablet PO 20 mg DAILY LIANNA Administration Diphenhydramine HCl 25 mg 05/10/24 15:16 Diphenhydramine Hcl Inj 50 Mg/Ml Vial IV PUSH Q4H PRN Nausea And Vomiting Gemfibrozil 600 mg 05/11/24 16:30 05/14/24 05:42 Gemfibrozil 600 Mg Tablet PO 600 mg BIDAC LIANNA Administration Heparin Sodium (Porcine) 5,000 units 05/13/24 14:00 05/14/24 05:42 Heparin Sodium 5,000 Units/Ml Vial SUB-Q 5,000 units Q8HR LIANNA Administration Hydromorphone HCl 1 mg 05/10/24 12:17 05/11/24 13:35 Hydromorphone Hcl Inj (*Crx) 1 Mg/Ml Syr IV PUSH 1 mg Q3H PRN Administration Pain Rated 7-10 Sodium Chloride 1,000 mls @ 100 mls/hr 05/12/24 16:00 05/13/24 20:13 Normal Saline Iv IV CONT 100 mls/hr .Q10H LIANNA Administration Ondansetron HCl 4 mg 05/10/24 10:06 05/14/24 07:57 Ondansetron Inj 4 Mg/2 Ml Vial IV PUSH 4 mg Q4H PRN Administration Nausea Pantoprazole Sodium 40 mg 05/12/24 21:00 05/14/24 07:57 Pantoprazole Sodium Iv 40 Mg Vial IV PUSH 40 mg Q12HR LIANNA Administration Prochlorperazine Edisylate 10 mg 05/10/24 15:15 05/13/24 14:41 Prochlorperazine Edisylate 10 Mg/2 Ml Vial IV PUSH 10 mg Q6H PRN Administration Nausea And Vomiting Radiology Results: ITS Impressions Abdomen/Pelvis CT 05/10/24 09:16 IMPRESSION: 1. Acute interstitial pancreatitis. Venous Doppler Study 05/13/24 13:49 IMPRESSION: 1. Patent left upper extremity veins. No evidence of deep venous thrombosis. Labs Labs: Laboratory Results - last 24 hr 05/14/24 06:37 WBC 17.9 H RBC 4.27 L Hgb 12.6 L Hct 36.6 L MCV 85.7 MCH 29.5 MCHC 34.4 RDW 12.1 Plt Count 344 MPV 9.3 Immature Gran % (Auto) 1.1 H Neut % (Auto) 81.6 H Lymph % (Auto) 6.3 L [place] % (Auto) 10.2 H Eos % (Auto) 0.4 Baso % (Auto) 0.4 Lymph # (Auto) 1.13 [place] # (Auto) 1.8 H Eos # (Auto) 0.1 Baso # (Auto) 0.1 Abs Immat Gran (auto) 0.20 H Absolute Neuts (auto) 14.6 H Absolute Nucleated RBC 0.000 Nucleated RBC % 0.0 Sodium 129 L Potassium 3.8 Chloride 95 L Carbon Dioxide 21 L Anion Gap 13 H BUN 14 Creatinine 0.70 Estim Creat Clear Calc 105 Estimated GFR > 60 Glucose 116 H Calcium 8.3 L Total Bilirubin 1.2 AST 37 ALT 30 Alkaline Phosphatase 93 Total Protein 7.0 Albumin 3.8
[2024-05-14 14:00] VITALS: BP 131/89; PULSE 90; RESP 18; TEMP 36.9; O2SAT 95
[2024-05-14] MEDS: MAGNESIUM HYDROXIDE SUSP 30 ML UDC PO (14:28)
--- NOTE | 2024-05-14 17:34 | WPDGIPROGNO ---
Progress Note: A&P Assessment and Plan (1) Acute pancreatitis: Qualifiers: Acute pancreatitis complication: uninfected necrosis Pancreatitis type: idiopathic Qualified Code(s): K85.01 - Idiopathic acute pancreatitis with uninfected necrosis Code(s): K85.90 - Acute pancreatitis without necrosis or infection, unspecified Status: Acute Assessment and Plan: clinically better, will advance diet continue with supportive care (2) Leukocytosis: Code(s): D72.829 - Elevated white blood cell count, unspecified Status: Acute Assessment and Plan: probably reactive from pancreatitis stable (3) Nausea & vomiting: Code(s): R11.2 - Nausea with vomiting, unspecified Status: Acute Assessment and Plan: better, eating more (4) Abdominal pain: Code(s): R10.9 - Unspecified abdominal pain Status: Acute Assessment and Plan: improved Subjective Date/time seen: 05/14/24 17:34 Interval history: today feeling better and eating more Review of Systems Review of Systems: All systems reviewed & are unremarkable except as noted in HPI and below Exam Const: General: comfortable and no acute distress HENMT: Face/Nose/Sinus: Normal nares present Eyes: General: appearance normal, both eyes and all related structures Neck: Neck: supple Resp: Effort & Inspection: normal respiratory effort Cardio: Rate: regular rate Rhythm: regular rhythm GI: GI Palp: Yes Soft to palpation and Yes Tenderness to palpation present (GI) (ttp in mid abdomen- improved today, no rebound) Auscultation: normal bowel sounds Skin: General skin exam: normal color Neuro: Speech: normal speech Motor exam (neuro): 5/5 motor strength present throughout Extrem: General: normal to inspection and no pedal edema Psych: Mental Status: mental status grossly normal Objective Data Vital Signs Vital Signs: Vital Signs - 24 hr 05/13/24 21:25 05/13/24 20:00 05/14/24 05:07 Temperature 97.6 F 98.3 F Pulse Rate 99 86 Respiratory Rate 18 16 Blood Pressure 128/84 139/82 Pulse Oximetry 93 96 Oxygen Delivery Room Air 05/14/24 08:07 05/14/24 14:00 Temperature 98.4 F Pulse Rate 90 Respiratory Rate 18 Blood Pressure 131/89 Pulse Oximetry 95 Oxygen Delivery Room Air Intake/Output Intake/Output: Intake & Output 05/11/24 05/12/24 05/13/24 05/14/24 23:59 23:59 23:59 23:59 Intake Total 2557.5 1445 3930.0 1830 Balance 2557.5 1445 3930.0 1830 Meds/Results Medications: Active Medications Generic Name Dose Route Start Last Admin Trade Name Freq PRN Reason Stop Dose Admin Acetaminophen 650 mg 05/10/24 12:17 05/11/24 20:17 Acetaminophen 325 Mg Tablet PO 650 mg Q4H PRN Administration Mild Pain (1-3) or Fever Hydrocodone Bitart/Acetaminophen 1 tab 05/10/24 12:17 05/14/24 16:05 Hydrocodone/Acetaminophen (*Crx) 5-325 Mg Tablet PO 1 tab Q4H PRN Administration Pain Rated 4-6 Atorvastatin Calcium 20 mg 05/12/24 09:00 05/14/24 07:57 Atorvastatin 20 Mg Tablet PO 20 mg DAILY LIANNA Administration Bisacodyl 10 mg 05/14/24 14:07 Bisacodyl 10 Mg Suppository RECTAL HS PRN Constipation Diphenhydramine HCl 25 mg 05/10/24 15:16 Diphenhydramine Hcl Inj 50 Mg/Ml Vial IV PUSH Q4H PRN Nausea And Vomiting Gemfibrozil 600 mg 05/11/24 16:30 05/14/24 16:05 Gemfibrozil 600 Mg Tablet PO 600 mg BIDAC LIANNA Administration Heparin Sodium (Porcine) 5,000 units 05/13/24 14:00 05/14/24 14:25 Heparin Sodium 5,000 Units/Ml Vial SUB-Q 5,000 units Q8HR LIANNA Administration Hydromorphone HCl 1 mg 05/10/24 12:17 05/11/24 13:35 Hydromorphone Hcl Inj (*Crx) 1 Mg/Ml Syr IV PUSH 1 mg Q3H PRN Administration Pain Rated 7-10 Sodium Chloride 1,000 mls @ 100 mls/hr 05/12/24 16:00 05/14/24 12:06 Normal Saline Iv IV CONT Infused .Q10H LIANNA Infusion Ondansetron HCl 4 mg
[2024-05-14] MEDS: SODIUM CHLORIDE 0.9% IV 1,000 ML 100 ML IV CONT (20:36)
[2024-05-14 21:22] VITALS: BP 134/90; PULSE 86; RESP 18; TEMP 36.4; O2SAT 96
[2024-05-15 05:54] LABS: Basophils Absolute Auto 0.1 K/mm3 (0.0-0.1); Basophils Percent Auto 0.7 % (0.2-1.2); Eosinophils Absolute Auto 0.2 K/mm3 (0-0.3); Eosinophils Percent Auto 0.8 % (0-4.4); Hematocrit 36.5 % (42.0-52.0); Hemoglobin 12.4 g/dL (14.0-18.0); Immature Granulocyte Absolute 0.19 K/mm3 (0.00-0.031); Lymphocytes Absolute Auto 1.45 K/mm3 (0.9-3.2); Lymphocytes Percent Auto 7.5 % (18.3-44.2); Mean Corpuscular Hemoglobin 28.8 pg (26-34); Mean Corpuscular Volume 84.7 fl (80-100); Mean Platelet Volume 9.1 fl (7.4-10.4); Monocytes Absolute Auto 1.9 K/mm3 (0.1-0.6); Monocytes Percent Auto 9.9 % (2.6-8.5); Neutrophils Absolute Auto 15.5 K/mm3 (1.3-6.7); Neutrophils Percent Auto 80.1 % (45.5-73.1); Platelet Count Result 370 k/mm3 (150-375); Red Blood Count 4.31 M/mm3 (4.6-6.20); Red Cell Distribution Width 12.1 % (11.5-14.5); White Blood Count 19.3 K/mm3 (4.5-10.0)
[2024-05-15 06:00] VITALS: BP 124/84; PULSE 85; RESP 16; TEMP 36.6; O2SAT 96
[2024-05-15 06:06] LABS: Alanine Aminotransferase 31 U/L (6-50); Albumin Level 3.8 g/dL (3.5-5.1); Alkaline Phosphatase 122 U/L (38-126); Anion Gap 11 mmol/L (4-12); Aspartate Amino Transferase 33 U/L (17-59); Bilirubin,Total 0.8 mg/dL (0.2-1.3); Blood Urea Nitrogen 11 mg/dL (9-20); Calcium 8.4 mg/dL (8.4-10.2); Carbon Dioxide 22 mmol/L (22-30); Chloride 96 mmol/L (98-107); Estimated CRCL calculation 105 ml/min; Estimated Glomerular Filt Rate > 60; Glucose 121 mg/dL (65-110); Potassium 3.8 mmol/L (3.4-5.0); Sodium 129 mmol/L (137-145)
[2024-05-15] MEDS: HEPARIN SODIUM 5,000 UNITS/ML VIAL 5000 UNITS SUB-Q (06:06)
[2024-05-15] MEDS: HYDROcodone/acetaminophen (*CRX) 5-325 MG TABLET 1 TAB PO (06:07)
[2024-05-15] MEDS: gemfibroziL 600 MG TABLET PO (06:07)
[2024-05-15] MEDS: PANTOPRAZOLE SODIUM IV 40 MG VIAL IV PUSH (08:20)
[2024-05-15] MEDS: ATORVASTATIN 20 MG TABLET PO (08:20)
[2024-05-15 14:00] VITALS: BP 131/90; PULSE 95; RESP 16; TEMP 37.1; O2SAT 94
--- NOTE | 2024-05-15 14:00 | PM.IMPN ---
Progress Note: A&P Assessment and Plan (1) Acute pancreatitis: Qualifiers: Acute pancreatitis complication: uninfected necrosis Pancreatitis type: idiopathic Qualified Code(s): K85.01 - Idiopathic acute pancreatitis with uninfected necrosis Code(s): K85.90 - Acute pancreatitis without necrosis or infection, unspecified Status: Acute (2) Hypertriglyceridemia: Code(s): E78.1 - Pure hyperglyceridemia Status: Acute (3) Anemia: Code(s): D64.9 - Anemia, unspecified Status: Acute Plan 49-year-old male who presented to the hospital on 05/10/2024 with abdominal pain. Workup in the hospital included an abdomen pelvis CT which showed acute interstitial pancreatitis. Initial labs showed a white blood cell count of 17.4, blood glucose 130, lipase 2434. acute pancreatitis: CT of the abdomen pelvis showing acute interstitial pancreatitis GI following, appreciate recommendations continue with IV fluids Pain control Liquid diet as tolerated Zofran p.r.n. started on Lopid and statin for hypertriglyceridemia monitor leukocytosis continue with PPI b.i.d. Mild hyponatremia: continue with IV fluids Recheck BMP in a.m. left arm swelling: await DVT study DVT prophylaxis: Heparin subQ code status: Full Disposition: Pending improvement Time Spent With Patient Time: 48 minutes Subjective Date/time seen: 05/15/24 14:00 Interval history: Afebrile, VSS, RA, WBC about the same, 19.3, Na 129, CO2 low 22, AG 11 Continues to improve Review of Systems Review of Systems: All systems reviewed & are unremarkable except as noted in HPI and below Constitutional: Constitutional: Reports as per HPI and Reports no additional constitutional complaints Eyes: Eyes: Reports as per HPI and Reports no additional eye complaints ENT: Reports system reviewed and no additional complaints, except as documented and Reports as per HPI Cardiovascular: Cardiovascular: Reports as per HPI and Reports no additional cardiovascular complaints Respiratory: Respiratory: Reports as per HPI and Reports no additional respiratory complaints Gastrointestinal: Gastrointestinal: Reports as per HPI and Reports no additional gastrointestinal complaints Genitourinary: Genitourinary: Reports no additional male genitourinary complaints and Reports as per HPI Musculoskeletal: Musculoskeletal: Reports no additional musculoskeletal complaints and Reports as per HPI Integumentary/Breasts: Skin/Breast: Reports system reviewed and no additional complaints, except as docu and Reports as per HPI Neurologic: Reports system reviewed and no additional complaints, except as documented and Reports as per HPI Psychiatric: Psychiatric: Reports no additional psychiatric complaints and Reports as per HPI Exam Narrative: General: In no acute distress, well nourished Head: atraumatic, no encephalopathy Eyes: EOMI, PERRLA, sclera clear ENT: moist mucous membranes, nasal passages clear Neck: supple, no JVD, no adenopathy, trachea midline Cardiac: Normal S1 and S2. No murmur, gallops or friction rubs, peripheral pulses intact. Respiratory: Lungs clear to auscultation, no adventitious lung sounds Gastrointestinal: soft, non-distended, tenderness epigastric and upper quadrants, normoactive bowel sounds. : voiding without difficulty. Extremities: moves all extremities well, no edema, good ROM, strength 5/5 Skin: clean, dry, intact. No wounds or lesions. Neuro: Alert and oriented x4, cranial nerves intact, no neuro deficits. Psych: normal mood, normal affect, interactive Const: General: no acute distress and uncomfortable Other: , male, nontoxic appearance HENMT: Face/Nose/Sinus: Normal nares present Mouth: Yes moist mucous membranes Eyes: General: appearance normal, both eyes and all related structures Sclera: sclerae normal Pupils: Equal, round and reactive pupils present EOM: EOMs in
--- NOTE | 2024-05-15 15:15 | PM.DS ---
DS: Admitting Diagnosis Discharge Date 05/15/2024 Admitting Diagnosis Acute Pancreatitis DS: Discharge Diagnosis Discharge Diagnosis (1) Acute pancreatitis: Qualifiers: Acute pancreatitis complication: uninfected necrosis Pancreatitis type: idiopathic Qualified Code(s): K85.01 - Idiopathic acute pancreatitis with uninfected necrosis Code(s): K85.90 - Acute pancreatitis without necrosis or infection, unspecified Status: Acute DS: Summary Hospital Course Reason for hospitalization: Acute Pancreatitis Hospital Course: Acute Pancreatitis--Lipase peaked at 3600 on 05/11. Evaluated by GI and treated symptomatically with fluids, pain and nausea medications. Continue dilaudid and Vicodin during admission. Pain almost resolved so discharged with gabapentin 300 BID, tylenol prn. Advanced diet slowly and tolerating a low fat diet without increased pain at discharge. Follow up with PCP HLD/High triglycerides--Total cholesterol 222, triglycerides 185. HgbA1c 6. Initially started on gemfibrocil and atorvastatin 20 in the hospital, discharged with atorvastatin 40 and metformin 500 ER daily. Follow up blood sugars outpatient. Status at Discharge Cognitive/behavioral status at discharge: Alert and Oriented x4 Time Spent with Patient Time attestation: Total time spent providing and/or coordinating discharge services: 56 minutes DS: Data Data Completed and Pending Labs on day of discharge: Labs from last 24 hours 05/15/24 05:35 WBC 19.3 H RBC 4.31 L Hgb 12.4 L Hct 36.5 L MCV 84.7 MCH 28.8 MCHC 34.0 RDW 12.1 Plt Count 370 MPV 9.1 Immature Gran % (Auto) 1.0 H Neut % (Auto) 80.1 H Lymph % (Auto) 7.5 L [place] % (Auto) 9.9 H Eos % (Auto) 0.8 Baso % (Auto) 0.7 Lymph # (Auto) 1.45 [place] # (Auto) 1.9 H Eos # (Auto) 0.2 Baso # (Auto) 0.1 Abs Immat Gran (auto) 0.19 H Absolute Neuts (auto) 15.5 H Absolute Nucleated RBC 0.000 Nucleated RBC % 0.0 Sodium 129 L Potassium 3.8 Chloride 96 L Carbon Dioxide 22 Anion Gap 11 BUN 11 Creatinine 0.70 Estim Creat Clear Calc 105 Estimated GFR > 60 Glucose 121 H Calcium 8.4 Total Bilirubin 0.8 AST 33 ALT 31 Alkaline Phosphatase 122 Total Protein 7.0 Albumin 3.8 Discharge Plan Discharge Attending physician on discharge: Cassidy Acharya Consulting providers: Juan F Justice; Felipa Torres Discharging Clinician: Cassidy Acharya Anticipated Discharge Date/Time: 05/15/24 14:34 Patient Disposition: Home, Self-Care Activity: may shower Diet: low fat Wound Care Instructions: follow printed instructions Discharge Instructions: Per Care Coordination: Please call to get set up with a new Primary Care Provider - [facility] [phone] Take Gabapentin twice a day until your gustavo is resolved for 24 hours, then decrease to bedtime only. OK to stop when pain resolved. Very low fat diet only and no alcohol. Limit high sugar and high carb foods. Smoking can also exacerbate pancreatitis. You should follow up you cholesterol, triglycerides, and blood sugars at follow up. Patient Instructions: Antibiotic Form, Low Fat Diet (DC), Pain Management (DC) Stand Alone Forms: General Discharge Information, Work/School Release IP Follow-up/Referrals: [facility] [Outside] Discharge Medications: New acetaminophen 325 mg Tablet 650 mg PO Q4H PRN (Reason: Mild Pain (1-3) Or Fever) Qty: 100 0RF gabapentin 300 mg capsule 300 mg PO BID Qty: 120 0RF ondansetron 4 mg tablet,disintegrating 4 mg PO Q6H Qty: 10 0RF pantoprazole 40 mg tablet,delayed release (DR/EC) 40 mg PO QAM Qty: 30 0RF atorvastatin 40 mg tablet 40 mg PO HS Qty: 30 2RF metformin 500 mg tablet extended release 24 hr 500 mg PO DAILY Qty: 30 0RF Date of admission: 05/10/24 13:09 Primary Care Provider: PHYSICIAN,UTILITY TRACTOR OPERATOR Admitting Provider: Puma Noel
== END 2024-05-15 15:16 | disposition home or self-care (01) | DRG 439 ==
LOC: ANHED 10:06 → ANH3MED 10:36
PROVIDERS: Nurse Practitioner Acute Care; Student in an Organized Health Care Education/Training Program; Admitting Provider Family Medicine; Emergency Provider Emergency Medicine; Visit Provider Nurse Practitioner Acute Care
DX: K85.80 Other acute pancreatitis without necrosis or infection (principal); E87.1 Hypo-osmolality and hyponatremia; K21.9 Gastro-esophageal reflux disease without esophagitis; R19.5 Other fecal abnormalities; E78.1 Pure hyperglyceridemia; D64.89 Other specified anemias; D72.829 Elevated white blood cell count, unspecified; M79.89 Other specified soft tissue disorders; Z90.49 Acquired absence of other specified parts of digestive tract; Z87.891 Personal history of nicotine dependence
CPT/HCPCS: 36415; 74177; 80053; 80061; 81003; 83036; 83690; 84478; 85025; 93971; 96361; 96374; 96375; 96376; 99285; A9270; G0378; J0780; J1170; J1644; J2405; J2470; J7030; J7120; Q9967